=== PATIENT | female | born 1995 | race Caucasian/White ===

== ENCOUNTER 2019-03-02 17:03 | Emergency (ER) | payer BC ==
[2019-03-02 17:30] VITALS: BP 118/86
--- NOTE | 2019-03-02 17:46 | UC ---
Complaint Female HPI - HPI Summary HPI Summary: Pt presents with c/o vaginal itching and tenderness, thick white discharge, and states that she has "frequent" yeast infections. Pt states that she has had a yeast infection for "a month now". She tried OTC monistat and had 1 diflucan tablet at home and took it with no improvement in symptoms. Denies, fever, chills, risk for STD, low back pain or urinary symptoms of urgency and frequency. - History Of Current Complaint Chief Complaint: UCGU Stated Complaint: PERSONAL Time Seen by Provider: 03/02/19 17:15 Hx Obtained From: Patient Hx Last Menstrual Period: 02/06/19 ?: No Onset/Duration: Sudden Onset, Lasting Weeks - 4, Still Present Timing: Constant Severity Initially: Mild Severity Currently: Mild Pain Intensity: 0 Character: Burning Aggravating Factor(s): Urination Associated Signs And Symptoms: Positive: Vaginal Discharge - Risk Factors Ectopic Risk Factor: Negative Ovarian Torsion Risk Factor: Reproductive Age - Allergies/Home Medications Allergies/Adverse Reactions: Allergies Allergy/AdvReac Type Severity Reaction Status Date / Time No Known Allergies Allergy Verified 03/02/19 17:20 Home Medications: Home Medications Multivitamin [Multivitamins] 1 cap PO DAILY 03/02/19 [History Confirmed 03/02/19 ] Oral Contraceptive 1 tab PO DAILY 03/02/19 [History] ValACYclovir (*) [Valtrex 500 mg (*)] 500 mg PO DAILY 03/02/19 [History Confirmed 03/02/19] PMH/Surg Hx/FS Hx/Imm Hx Previously Healthy: Yes - Surgical History Surgical History: None - Family History Known Family History: Positive: Cardiac Disease - Social History Occupation: Employed Full-time Lives: With Family Alcohol Use: Occasionally Substance Use Type: None Smoking Status (MU): Never Smoked Tobacco Have You Smoked in the Last Year: No - Immunization History Vaccination Up to Date: Yes Review of Systems All Other Systems Reviewed And Are Negative: Yes Constitutional: Positive: Negative Skin: Positive: Negative Eyes: Positive: Negative ENT: Positive: Negative Respiratory: Positive: Negative Cardiovascular: Positive: Negative Gastrointestinal: Positive: Negative Genitourinary: Positive: Vaginal/Penile Burning, Vaginal/Penile Itching, Vaginal /Penile Discharge Motor: Positive: Negative Neurovascular: Positive: Negative Musculoskeletal: Positive: Negative Neurological: Positive: Negative Psychological: Positive: Negative Is Patient Immunocompromised?: No Physical Exam Triage Information Reviewed: Yes Appearance: Well-Appearing Vital Signs: Initial Vital Signs Temp 98.2 F 03/02/19 17:21 Pulse 75 03/02/19 17:21 Resp 18 03/02/19 17:21 BP 118/86 03/02/19 17:21 Pulse Ox 97 03/02/19 17:21 Vital Signs Reviewed: Yes Eye Exam: Normal ENT Exam: Normal ENT: Positive: Hearing grossly normal Dental Exam: Normal Neck exam: Normal Respiratory: Positive: No respiratory distress Pelvic Exam: Positive: Other - pt declined pelvic exam Musculoskeletal Exam: Normal Neurological Exam: Normal Psychological Exam: Normal Skin Exam: Normal Complaint Female Dx - Differential Dx/Diagnosis Differential Diagnosis/HQI/PQRI: Sexually Transmitted Disease, Urinary Tract Infection Provider Diagnosis: Itching in the vaginal area Discharge ED - Sign-Out/Discharge Documenting (check all that apply): Patient Departure All imaging exams completed and their final reports reviewed: No Studies - Discharge Plan Condition: Stable Disposition: HOME Prescriptions: Fluconazole 100 MG TAB* [Diflucan 100 MG TAB*] 100 mg PO DAILY #3 tab Patient Education Materials: Vaginitis (ED) Referrals: [facility] [Outside] - If Needed No Primary Care Phys,NOPCP [Primary Care Provider] - Additional Instructions: Please establish care with a PCP as soon as possible. Please keep your appointment with the [facility] provider as scheduled. If your symptoms do not improve or they worsen, please seek care at the closest healthcare facility as soon as possible. - Billing Disposition and Condition Condition: STABLE Disposition: Home - Attestation Statements Provider Attestation: Per institutional requirements, I have reviewed the chart, however, I was not consulted specifically or made aware of this patient by the midlevel provider. I did not personally evaluate, interact with , or disposition this patient.
== END 2019-03-02 18:01 | disposition home or self-care (01) ==
LOC: UCCORT 17:03
DX: L29.2 Pruritus vulvae (principal)
CPT/HCPCS: 81003; 84702; 87480; 87510; 99202; G0463

== ENCOUNTER 2023-01-21 17:19 | Inpatient (IN) ==
[2023-01-21] MEDS ORDERED: Buffered Lidocaine 1% SYRIN 1 ml INTRADERM ONE (18:15)
[2023-01-21] MEDS ORDERED: Lactated Ringers 1000 ml BAG 1,000 ML IV ONE (18:15)
[2023-01-21] MEDS ORDERED: Promethazine INJ(RESTRICTED) 25 MG/ML 1 ml VIAL IV PRN (18:15)
[2023-01-21] MEDS ORDERED: Lactated Ringers 1000 ml BAG 1,000 ML IV SCH ×2 (19:00→22:00)
[2023-01-21] MEDS ORDERED: Lidocaine 2% w/ EPI 1:200,000 MPF 20 ML SDV VIAL ONE ×2 (19:08)
[2023-01-21] MEDS ORDERED: OBEPIDURAL (200 ML) 200 ML EPIDURAL ONE (19:08)
[2023-01-21 19:50] LABS: Urine Benzodiazepine Screen None Detected (None Detect); Urine Opiates Screen None Detected (None Detect)
[2023-01-21 20:02] LABS: ABS Lymphocytes 1.7 10^3/uL (1.0-4.8); ABS Monocytes 0.8 10^3/uL (0.0-0.9); ABS Neutrophils 15.1 10^3/uL (1.5-7.6); ABS Nucleated RBC 0.02 10^3/ul; Eosinophil % 0.1 %; Hemoglobin 11.2 g/dL (11.5-14.3); Lymphocyte % 9.4 %; Mean Corpuscular Hemoglobin 31.4 pg (27-33); Mean Corpuscular Hgb Conc 33.9 g/dL (31-36); Mean Corpuscular Volume 92.5 fL (80-97); Mean Platelet Volume 8.7 fL (7.5-11.2); Nucleated Red Blood Cells % 0.1 /100 WBC (0.0-0.4); Platelet Count 280 10^3/uL (150-450); Red Blood Count 3.57 10^6/uL (3.63-4.92); Red Cell Distribution Width 12.9 % (12-17); White Blood Count 17.6 10^3/uL (3.8-11.8)
[2023-01-21] MEDS ORDERED: Lidocaine 1% VIAL 10 MG/ML VIAL 30 ML ONE (20:59)
[2023-01-21] MEDS ORDERED: Sodium Citrate/Citric Acid LIQ 15 ML UDC PO PRN (21:22)
[2023-01-21] MEDS ORDERED: Phenylephrine 40 mcg/mL 10mL (400mcg) SYRINGE IV PUSH PRN ×2 (21:22)
[2023-01-21] MEDS ORDERED: fentaNYL 100 mcg/2 ml 50 MCG/ML VIAL ONE (21:29)
[2023-01-21] MEDS: Lactated Ringers 1000 ml BAG 1,000 ML IV ONE ×2 (21:41→21:43)
[2023-01-21] MEDS ORDERED: OBEPIDURAL (200 ML) 200 ML EPIDURAL SCH (22:00)
[2023-01-21 22:53] LABS: Urine Appearance Clear; Urine Bilirubin Negative (Negative); Urine Blood 2+ (Negative); Urine Color Yellow; Urine Glucose Negative (Negative); Urine Ketones Negative (Negative); Urine Nitrite Negative (Negative); Urine Protein Negative (Negative); Urine Specific Gravity 1.013 (1.002-1.030); Urine Urobilinogen Negative (Negative)
[2023-01-21 22:55] LABS: Urine Bacteria Absent (Absent); Urine Red Blood Cell 2+(6-10/hpf) (Absent); Urine Squamous Epithelial Cell Present (Absent); Urine White Blood Cell Absent (Absent)
[2023-01-22] MEDS ORDERED: Oxytocin 10 UNITS/ML 1 ML VIAL IM PRN (01:45)
[2023-01-22] MEDS ORDERED: Glycerin ADULT 2.4 gm SUPP PR PRN (01:45)
[2023-01-22] MEDS ORDERED: Lactated Ringers 1000 ml BAG 1,000 ML IV SCH (02:00)
[2023-01-22] MEDS: Witch Hazel PAD JAR TOPICAL PRN (02:11)
[2023-01-22] MEDS: Dibucaine 1% OINT 28.35 GM TUBE PR PRN (02:11)
[2023-01-23] MEDS: Witch Hazel PAD JAR TOPICAL PRN (05:59)
[2023-01-23] MEDS: Dibucaine 1% OINT 28.35 GM TUBE PR PRN (05:59)
[2023-01-23 07:29] LABS: ABS Basophils 0.1 10^3/uL (0.0-0.1); ABS Eosinophils 0.1 10^3/uL (0.0-0.5); ABS Lymphocytes 2.6 10^3/uL (1.0-4.8); ABS Neutrophils 11.7 10^3/uL (1.5-7.6); ABS Nucleated RBC 0.01 10^3/ul; Eosinophil % 0.6 %; Hematocrit 28.4 % (35-45); Hemoglobin 9.8 g/dL (11.5-14.3); Lymphocyte % 16.8 %; Mean Corpuscular Hemoglobin 32.1 pg (27-33); Mean Corpuscular Hgb Conc 34.5 g/dL (31-36); Mean Corpuscular Volume 92.9 fL (80-97); Mean Platelet Volume 8.2 fL (7.5-11.2); Nucleated Red Blood Cells % 0.1 /100 WBC (0.0-0.4); Platelet Count 244 10^3/uL (150-450); Red Blood Count 3.05 10^6/uL (3.63-4.92); Red Cell Distribution Width 12.8 % (12-17); White Blood Count 15.4 10^3/uL (3.8-11.8)
[2023-01-23 09:24] VITALS: BP 117/79
== END 2023-01-23 13:15 | disposition home or self-care (01) | DRG 560 ==
LOC: MCHOBOUT 17:19 → MCHOB 18:15
PROVIDERS: ADMIT Registered Nurse; ATTEND Registered Nurse